=== PATIENT | male | born 1960 | race Caucasian/White ===

== ENCOUNTER 2023-08-20 15:28 | Emergency (ER) | payer OTHER, SELFPAY ==
--- NOTE | ~2023-08-20 | XR_ITS ---
EXAMINATION: XR chest 1V portable DATE: 08/20/2023 18:05 INDICATION: Generalized weakness. TECHNIQUE: A single frontal view of the chest was obtained. COMPARISON: None. FINDINGS: Calcified left lung nodules and calcified hilar lymph nodes are consistent with old granulo matous disease. No pleural effusion or pneumothorax. The heart size is normal. IMPRESSION: 1. No acute cardiopulmonary disease. Reviewed, dictated and finalized at location E. RECLAMATION SPECIALIST
--- NOTE | ~2023-08-20 | CT_ITS ---
EXAMINATION: CT brain wo con DATE: 08/20/2023 16:25 INDICATION: Altered mental status. Recent subdural hematoma. TECHNIQUE: Computed tomography (CT) of the head was performed without intravenous contrast. The mA wa s adjusted according to patient size. Iterative reconstruction technique was employed. The dose-lengt h product was 681.00 mGy-cm. COMPARISON: None FINDINGS: There is a hyperdense left frontotemporoparietal occipital subdural hematoma with maximum t hickness of 9 mm. There is a hemorrhagic contusion in left temporal lobe where the hematoma is hyperd ense to hooker matter. There is a hypodense contusion in anteroinferior left frontal lobe. There is no abnormal mass lesion or acute ischemic infarct. The ventricles are normal in size. There are likely c hanges of ocular lens replacement surgeries. There is mucosal thickening in the paranasal sinuses inc luding near complete opacification of right maxillary sinus. There is a left mastoid effusion. There is a fracture of left lateral skull with involvement of the mastoid air cells and tympanic cavity. IMPRESSION: 1. Acute left frontotemporal parietal occipital subdural hematoma. 2. Acute hemorrhagic contusion in left temporal lobe. Contusion in left frontal lobe. 3. Left lateral skull fracture with temporal bone involvement. Reviewed, dictated and finalized at location E. 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
[2023-08-20 15:33] VITALS: BP 101/70; PULSE 87; RESP 16; TEMP 36.5; O2SAT 100
--- NOTE | 2023-08-20 17:51 | ED.GENADULT ---
HPI - General Adult General Chief complaint: Altered Mental Status Stated complaint: AMS Time Seen by Provider: 08/20/23 16:42 History of Present Illness HPI narrative: 62-year-old male presenting to the emergency department for evaluation for a brief episode of altered mental status with associated nausea and vomiting. Patient had a ground level fall secondary to a coughing fit on 08/11. Patient struck his head and did have multiple subdurals. Patient was transferred from his presenting Hospital, [facility], to [place]. Patient has been at [facility] after being discharged from [place]. Family states the patient does continue to improve and patient's sister states that she feels that he has had no worsening in his mental status. Patient is alert oriented and able to provide some of the history. Patient denies any new focal numbness or weakness. Related Data Home Medications Medication Instructions Recorded Confirmed Chloraseptic Mouth Pain [place] 1.4 % BYMOUTH Q2H PRN Sore Throat 08/15/23 08/15/23 albuterol 2.5 mg inhalation TID 08/15/23 08/15/23 amlodipine 5 mg tablet (Norvasc) 5 mg PO DAILY 08/15/23 08/15/23 aspirin 81 mg tablet 81 mg PO DAILY 08/15/23 08/15/23 atorvastatin 20 mg tablet (Lipitor) 20 mg PO DAILY 08/15/23 08/15/23 benzonatate 100 mg capsule 100 mg PO TID 08/15/23 08/15/23 brimonidine 0.2 %-timolol 0.5 % 0.2 drp EACH EYE DAILY 08/15/23 08/15/23 eye drops cetirizine 10 mg tablet (Zyrtec) 10 mg PO HS 08/15/23 08/15/23 enoxaparin 30 mg/0.3 mL 30 mg subcut BID 08/15/23 08/15/23 subcutaneous syringe (Lovenox) fluoxetine 20 mg capsule (Prozac) 20 mg PO DAILY 08/15/23 08/15/23 fluticasone furoate 100 1 inh inhalation DAILY 08/15/23 08/15/23 mcg-vilanterol 25 mcg/dose inhalation powder glucagon 1 mg injection kit 1 mg subcut DAILY PRN Hypoglycemia 08/15/23 08/15/23 guaifenesin 100 mg/5 mL oral liquid 20 mg PO QID 08/15/23 08/15/23 insulin glargine U-300 conc 300 30 unit subcut DAILY 08/15/23 08/15/23 unit/mL (3 mL) subcutaneous pen (Toujeo Max U-300 SoloStar) insulin glargine U-300 conc 300 35 unit subcut DAILY 08/15/23 08/15/23 unit/mL (3 mL) subcutaneous pen (Toujeo Max U-300 SoloStar) insulin lispro 100 unit/mL 15 - 30 sliding scale dose subcut 08/15/23 08/15/23 subcutaneous solution (Humalog TIDWM U-100 Insulin) levetiracetam 500 mg tablet 500 mg PO BID 08/15/23 08/15/23 (Keppra) levofloxacin 750 mg tablet 750 mg PO DAILY 08/15/23 08/15/23 levothyroxine 175 mcg tablet 175 mcg PO DAILY 08/15/23 08/15/23 (Synthroid) lisinopril 10 mg tablet 10 mg PO DAILY 08/15/23 08/15/23 pantoprazole 40 mg tablet,delayed 40 mg PO DAILY 08/15/23 08/15/23 release (Protonix) phenol-phenolate sodium lozenges 1 saad mucous membrane Q2H PRN Sore 08/15/23 08/15/23 Throat polyethylene glycol 3350 17 gram 17 g PO DAILY PRN Constipation 08/15/23 08/15/23 oral powder packet (Miralax) sennosides 8.6 mg tablet (Senokot) 8.6 mg PO BID 08/15/23 08/15/23 tamsulosin 0.4 mg capsule (Flomax) 0.4 mg PO HS 08/15/23 08/15/23 Allergies Allergy/AdvReac Type Severity Reaction Status Date / Time hydrocodone Allergy Nausea and Verified 08/20/23 16:57 Vomiting oxycodone Allergy Nausea and Verified 08/20/23 16:57 Vomiting Review of Systems Review of Systems: All systems reviewed & are unremarkable except as noted in HPI and below PMFSH Social History Social History Smoking status: Current every day smoker Tobacco type: cigarettes Additional smoking assessment comments: PT UNABLE TO ANSWER HOW LONG OR OFTEN HE SMOKED. Alcohol intake: unknown Substance use: unknown Spiritual care concerns: No Exam Narrative: APPEARANCE: Well appearing, no pain, no distress, well-nourished. HEAD: normocephalic, atraumatic. EYES: PERRLA/EOMI, conjunctivae clear. NOSE: Normal no drainage EARS:TMS clear with good light reflex. THROAT: Pharynx c
[2023-08-20 18:05] LABS: Basophils Percent Auto 0.2 % (0.2-1.2); Eosinophils Percent Auto 0.3 % (0-4.4); Hematocrit 38.5 % (42.0-52.0); Hemoglobin 13.1 g/dL (14.0-18.0); Immature Granulocyte Absolute 0.06 K/mm3 (0.00-0.031); Immature Granulocyte Percent A 0.6 % (0-0.5); Lymphocytes Absolute Auto 1.33 K/mm3 (0.9-3.2); Lymphocytes Percent Auto 13.5 % (18.3-44.2); Mean Platelet Volume 10.5 fl (7.4-10.4); Monocytes Absolute Auto 0.9 K/mm3 (0.1-0.6); Monocytes Percent Auto 8.8 % (2.6-8.5); Neutrophils Absolute Auto 7.6 K/mm3 (1.3-6.7); Neutrophils Percent Auto 76.6 % (45.5-73.1); Platelet Count Result 316 k/mm3 (150-375); Red Blood Count 4.23 M/mm3 (4.6-6.20); Red Cell Distribution Width 12.5 % (11.5-14.5); White Blood Count 9.9 K/mm3 (4.5-10.0)
[2023-08-20 18:14] LABS: Prothrombin Time 14.1 Seconds (11.1-14.7)
[2023-08-20 18:15] LABS: Alanine Aminotransferase 15 U/L (6-50); Albumin Level 3.4 g/dL (3.5-5.1); Alkaline Phosphatase 137 U/L (38-126); Anion Gap 6 mmol/L (8-16); Aspartate Amino Transferase 19 U/L (17-59); Bilirubin,Total 0.8 mg/dL (0.2-1.3); Blood Urea Nitrogen 24 mg/dL (9-20); Calcium 9.2 mg/dL (8.4-10.2); Carbon Dioxide 30 mmol/L (22-30); Chloride 97 mmol/L (98-107); Estimated CRCL calculation 83 ml/min; Estimated Glomerular Filt Rate > 60; Glucose 226 mg/dL (65-110); Partial Thromboplastin Time 33.9 SECONDS (22.3-36.8); Potassium 3.6 mmol/L (3.4-5.0); Sodium 133 mmol/L (137-145)
[2023-08-20 18:42] LABS: Influenza A QL RT-PCR Negative (Negative); Influenza B QL RT-PCR Negative (Negative); RSV RNA, RT-PCR Negative (Negative); SARS-CoV-2 RNA PCR Negative (Negative)
[2023-08-20 19:18] VITALS: BP 108/57; PULSE 75; RESP 16; O2SAT 99
== END 2023-08-20 19:29 ==
PROVIDERS: Emergency Provider Emergency Medicine; PCP Internal Medicine
DX: R41.82 Altered mental status, unspecified (principal); S06.5XAD Traumatic subdural hemorrhage with loss of consciousness status unknown, subsequent encounter; S06.2XAD Diffuse traumatic brain injury with loss of consciousness status unknown, subsequent encounter; S02.19XD Other fracture of base of skull, subsequent encounter for fracture with routine healing; Z11.52 Encounter for screening for COVID-19; F17.210 Nicotine dependence, cigarettes, uncomplicated; Z79.4 Long term (current) use of insulin; Z79.82 Long term (current) use of aspirin; X58.XXXD Exposure to other specified factors, subsequent encounter
CPT/HCPCS: 36415; 70450; 71045; 80053; 85025; 85610; 85730; 87637; 99284